=== PATIENT | female | born 1940 | race Caucasian/White ===

== ENCOUNTER 2018-03-15 16:05 | Inpatient (IN) | payer MEDICARE, OTHER ==
[~2018-03-15] VITALS: Ht 157.5 cm; Wt 60.5 kg
[~2018-03-15 16:05] MED LIST: ASPI81TA27 PO; ATEN-60 PO; CIPR-217 PO; GABA-339 PO; GABA300C10 PO; LEVO88TA4 PO; LISI10TA6 PO; METR500T PO
[2018-03-15] MEDS ORDERED: cefTRIAXone 1GM/10ml IVPUSH 10 ML IV ONE (18:00)
[2018-03-15] MEDS ORDERED: metroNIDAZOLE 500MG/100ML 100 ML IV ONE (18:00)
[2018-03-15 18:08] LABS: Basophils # (auto) 0 uL; Basophils % (auto) 0.3 % (0.0-2.0); Eosinophils # (auto) 0 uL; Eosinophils % (auto) 0.2 % (0.0-7.0); Hemoglobin 14.1 g/dL (12.2-16.2); Lymphocytes % (auto) 10.9 % (10.0-50.0); Mean Corpuscular Hemoglobin 30.2 pg (28.0-32.0); Mean Corpuscular Hgb Conc. 33.6 g/dL (32.0-36.0); Mean Corpuscular Volume 89.9 fL (80.0-100.0); Monocytes # (auto) 0.5 uL; Monocytes % (auto) 5.1 % (0.0-12.0); Neutrophils # (auto) 7.7 uL; Neutrophils % (auto) 83.5 % (37.0-80.0); Nucleated Red Blood Cells % 0.1 %; Platelet Count (auto) 267 10^3/uL (140-450); Red Blood Cells 4.67 10^6/uL (4.0-5.20); Red Cell Distribution Width 13.6 % (11.8-14.3); White Blood Cell 9.2 10^3/uL (4.4-10.8)
[2018-03-15 18:19] LABS: Calcium 9.3 mg/dL (8.5-10.1)
[2018-03-15 18:22] LABS: BUN/Creatinine Ratio 8.6
[2018-03-15 18:25] LABS: Bilirubin, Total 0.4 mg/dL (0.2-1.0); Total Protein 7.6 g/dL (6.4-8.2)
[2018-03-15 19:13] LABS: Urine Bacteria NONE SEEN /hpf (None Seen); Urine Blood 1+ /uL (Negative); Urine Mucus FEW (None Seen); Urine Specific Gravity 1.016 (1.001-1.035); Urine WBC 1 /hpf (0 - 5)
[2018-03-15] MEDS ORDERED: MORPHINE SULFATE 4 MG/ML SYR/VIAL IV PRN ×2 (19:45)
[2018-03-15] MEDS ORDERED: HYDROcodone-ACET 5/325MG TAB PO PRN (19:45)
[2018-03-15] MEDS ORDERED: LORazepam 0.5 MG TAB PO PRN (19:45)
[2018-03-15] MEDS ORDERED: TEMAZEPAM 15 MG CAP PO PRN (19:45)
[2018-03-15] MEDS ORDERED: PROMETHAZINE HCL 25 MG/ML 1ML IV PRN (19:45)
[2018-03-15] MEDS ORDERED: NITROGLYCERIN 0.4 MG SL TAB SL PRN (19:45)
[2018-03-15] MEDS: cefTRIAXone 1GM/10ml IVPUSH 10 ML IV ONE ×2 (20:04→20:06)
[2018-03-15] MEDS: SODIUM CHLORIDE 0.9% 1,000 ML IV SCH (20:04)
[2018-03-15] MEDS ORDERED: cloNIDine HCL 0.1 MG TAB PO PRN (20:30)
[2018-03-15 21:20] VITALS: BP 153/72
[2018-03-15] MEDS: FAMOTIDINE 20 MG TAB PO SCH (21:52)
[2018-03-15] MEDS: GABAPENTIN 300 MG CAP PO SCH (21:52)
[2018-03-15 21:53] VITALS: BP 153/72
[2018-03-15] MEDS: metroNIDAZOLE 500MG/100ML 100 ML IV SCH (23:51)
[2018-03-16] VITALS (8 sets, daily range): BP systolic 143–163; BP diastolic 64–88
[2018-03-16 00:45] LABS: Hematocrit 37.4 % (36.0-46.0); Hemoglobin 12.6 g/dL (12.2-16.2)
[2018-03-16] MEDS: SODIUM CHLORIDE 0.9% 1,000 ML IV SCH ×2 (05:22→13:15)
[2018-03-16] MEDS: metroNIDAZOLE 500MG/100ML 100 ML IV SCH ×4 (06:22→23:55)
[2018-03-16] MEDS: LEVOTHYROXINE SODIUM 88 MCG TAB PO SCH (06:23)
[2018-03-16] MEDS: GABAPENTIN 300 MG CAP PO SCH ×2 (06:23→21:33)
[2018-03-16 06:53] LABS: Hemoglobin 12.6 g/dL (12.2-16.2)
[2018-03-16] MEDS: cefTRIAXone 1GM/10ml IVPUSH 10 ML IV SCH (09:08)
[2018-03-16] MEDS: FAMOTIDINE 20 MG TAB PO SCH ×2 (09:08→21:33)
[2018-03-16] MEDS ORDERED: ATENOLOL 25 MG TAB PO SCH (10:00)
[2018-03-16] MEDS ORDERED: AMLO5TAB2 PO (10:37)
[2018-03-16] MEDS ORDERED: LOSA50TA6 PO (10:37)
[2018-03-16] MEDS ORDERED: LEVO100T8 PO (10:37)
[2018-03-16] MEDS ORDERED: METO-158 PO (10:37)
[2018-03-16] MEDS ORDERED: FAMO40TA49 PO (11:37)
[2018-03-16] MEDS ORDERED: ESCI5TAB14 PO (11:37)
[2018-03-16 12:26] LABS: Hematocrit 39.6 % (36.0-46.0); Hemoglobin 13.1 g/dL (12.2-16.2)
[2018-03-16] MEDS: ACETAMINOPHEN 500 MG TAB PO PRN (16:08)
[2018-03-16] MEDS: METOPROLOL TARTRATE 25 MG TAB PO SCH (21:32)
[2018-03-17] MEDS: SODIUM CHLORIDE 0.9% 1,000 ML IV SCH ×2 (02:46→12:32)
[2018-03-17 04:49] VITALS: BP 163/70
[2018-03-17] MEDS: metroNIDAZOLE 500MG/100ML 100 ML IV SCH ×4 (06:30→23:29)
[2018-03-17] MEDS: LEVOTHYROXINE SODIUM 88 MCG TAB PO SCH (06:37)
[2018-03-17] MEDS: GABAPENTIN 300 MG CAP PO SCH ×2 (06:37→21:31)
[2018-03-17 06:45] LABS: Basophils # (auto) 0 uL; Basophils % (auto) 0.8 % (0.0-2.0); Eosinophils # (auto) 0.2 uL; Hematocrit 35.8 % (36.0-46.0); Lymphocytes # (auto) 1.2 uL; Lymphocytes % (auto) 25.1 % (10.0-50.0); Mean Corpuscular Hemoglobin 30.4 pg (28.0-32.0); Mean Corpuscular Hgb Conc. 33.5 g/dL (32.0-36.0); Mean Corpuscular Volume 90.6 fL (80.0-100.0); Monocytes # (auto) 0.5 uL; Monocytes % (auto) 9.2 % (0.0-12.0); Neutrophils # (auto) 3.1 uL; Neutrophils % (auto) 61.9 % (37.0-80.0); Nucleated Red Blood Cells % 0.1 %; Platelet Count (auto) 201 10^3/uL (140-450); Red Blood Cells 3.95 10^6/uL (4.0-5.20); Red Cell Distribution Width 13.3 % (11.8-14.3); White Blood Cell 4.9 10^3/uL (4.4-10.8)
[2018-03-17 06:59] LABS: Potassium 3.6 mmol/L (3.5-5.1)
[2018-03-17 07:09] LABS: BUN/Creatinine Ratio 5.7; Calcium 8.5 mg/dL (8.5-10.1)
[2018-03-17 08:00] VITALS: BP 153/68
[2018-03-17 09:00] VITALS: BP 134/59
[2018-03-17] MEDS: FAMOTIDINE 20 MG TAB PO SCH ×2 (09:32→21:31)
[2018-03-17] MEDS: cefTRIAXone 1GM/10ml IVPUSH 10 ML IV SCH (09:33)
[2018-03-17] MEDS: METOPROLOL TARTRATE 25 MG TAB PO SCH ×2 (09:33→21:32)
[2018-03-17] MEDS ORDERED: LEVO500T21 PO (11:30)
[2018-03-17] MEDS ORDERED: amLODIPine BESYLATE 5 MG TAB PO ONE (11:30)
[2018-03-17] MEDS ORDERED: METR500T PO (11:30)
[2018-03-17 13:00] VITALS: BP 138/77
[2018-03-17] MEDS ORDERED: MORPHINE SULFATE 8mg/ml INJ SDV IV PRN (17:00)
[2018-03-17 20:00] VITALS: BP 145/66
[2018-03-17 21:46] VITALS: BP 145/66
[2018-03-18] MEDS: ACETAMINOPHEN 500 MG TAB PO PRN (01:51)
[2018-03-18] MEDS: SODIUM CHLORIDE 0.9% 1,000 ML IV SCH (04:20)
[2018-03-18 04:52] VITALS: BP 153/71
[2018-03-18 05:57] LABS: Hemoglobin 12.8 g/dL (12.2-16.2)
[2018-03-18] MEDS: GABAPENTIN 300 MG CAP PO SCH (06:14)
[2018-03-18] MEDS: metroNIDAZOLE 500MG/100ML 100 ML IV SCH (06:14)
[2018-03-18] MEDS: LEVOTHYROXINE SODIUM 88 MCG TAB PO SCH (06:14)
[2018-03-18 08:28] VITALS: BP 128/94
[2018-03-18 09:00] VITALS: BP 128/94
[2018-03-18] MEDS: cefTRIAXone 1GM/10ml IVPUSH 10 ML IV SCH (09:01)
[2018-03-18] MEDS: FAMOTIDINE 20 MG TAB PO SCH (09:01)
[2018-03-18] MEDS: METOPROLOL TARTRATE 25 MG TAB PO SCH (09:02)
[2018-03-18] MEDS ORDERED: amLODIPine BESYLATE 5 MG TAB PO SCH (10:00)
== END 2018-03-18 09:30 | disposition home or self-care (01) | DRG 379 ==
LOC: ER 16:05 → EAST 16:06 → TELE-EAST 21:57
PROVIDERS: ADMIT Nurse Practitioner; ATTEND Internal Medicine
DX: K57.33 Diverticulitis of large intestine without perforation or abscess with bleeding (principal); E03.9 Hypothyroidism, unspecified; I10 Essential (primary) hypertension; I25.10 Atherosclerotic heart disease of native coronary artery without angina pectoris; M54.5 Low back pain; G89.29 Other chronic pain; K57.91 Diverticulosis of intestine, part unspecified, without perforation or abscess with bleeding; Z90.710 Acquired absence of both cervix and uterus; Z95.5 Presence of coronary angioplasty implant and graft; I25.2 Old myocardial infarction
CPT/HCPCS: 36415; 74176; 80048; 80053; 81001; 82150; 83605; 83690; 83735; 85014; 85018; 85025; 85045; 87040; 93005; 96374; 96375; 99291; A4565; J3490